=== PATIENT | male | born 1955 ===

== ENCOUNTER 2023-06-12 05:36 | Day surgery (SDC) | payer OTHER ==
[~2023-06-12 05:36] MED LIST: COZAAR100 MG PO; ELIQUIS5 MG PO; NORVASC10 MG PO; PEPCID AC20 MG PO; SYNTHROID75 MCG PO; TAMS0.4C PO
[2023-06-12] MEDS ORDERED: RECTICARE30 GM TOP (08:12)
[2023-06-12] MEDS ORDERED: PERCOCET 5-3251 EACH PO (08:12)
== END 2023-06-12 14:30 | disposition home or self-care (01) ==
LOC: CIR.AMB 05:36
PROVIDERS: ATTEND Surgery
DX: K62.0 Anal polyp (principal); K62.1 Rectal polyp; K62.4 Stenosis of anus and rectum; K60.3 Anal fistula; Z20.822 Contact with and (suspected) exposure to COVID-19